=== PATIENT | male | born 1945 | race Hispanic/Latino ===

== ENCOUNTER → 2019-03-22 | Outpatient (CLI) | payer MEDICARE ==
--- NOTE | 2019-03-22 13:30 | NUR ---
MBSS COMPLETED. TRANSIENT PENETRATION WITH THIN LIQUIDS. RECOMMEND REGULAR TEXTURE, THIN LIQUIDS WITH CHIN TUCK, PILLS WHOLE WITH LIQUIDS. PATIENT INFORMATION: Pt IS A 73 YEAR OLD MALE REFERRED FOR AN MBSS SECONDARY TO S/P RADIATION TO LARYNX AND POSSIBLE SILENT ASPIRATION. Pt AAOX3 AND COOPERATIVE DURING THE MBSS. Pt REPORTS THAT HE DOES NOT FEEL THAT HE IS CURRENTLY HAVING DIFFICULTY SWALLOWING. Pt DIAGNOSED WITH LARYNGEAL CANCER AND PARTICIPATED IN RADIATION THERAPY FOR 1 MONTH WITH LAST SESSION 2 DAYS AGO. 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 Pt'S WITH HOARSENESS AND LOW VOCAL INTENSITY WHEN VOICING. PLEASE NOTE Pt DID NOT BRING DENTURES TO MBSS AND IT WAS COMPLETED WITH Pt EDENTULOUS. MBSS INTERPRETATION: Pt PRESENTS WITH MILD PHARYNGEAL DYSPHAGIA CAUSED BY DECREASED TONGUE BASE RETRACTION AND DELAYED PHARYNGEAL RESPONSE TIME WITH MINIMAL DECREASED IN LARYNGEAL EXCURSION, EVIDENCED BY POOLING IN THE VALLECULAE (WITHOUT RESIDUE), RESULTING IN SHALLOW TRANSIENT PENETRATION WITH THIN LIQUIDS VIA CUP SIP WITH NO COUGH RESPONSE, NO PENETRATION WITH THIN LIQUIDS VIA CUP SIP USING CHIN TUCK. NO ASPIRATION PRESENT AT THE TIME OF THE MBSS. PLEASE NOTE Pt ABLE TO COMPENSATE FOR MISSING DENTITION. TRIALS: 1. TSP PUREED: GOOD 2. TSP PUDDING: GOOD 3. TSP MIXED: GOOD 4. CUP SIP THIN LIQUIDS: SHALLOW TRANSIENT PENETRATION (SILENT) 5. CUP SIP THIN LIQUIDS WITH CHIN TUCK: GOOD RECOMMENDATIONS: 1. REGULAR, THIN LIQUIDS, PILLS WHOLE WITH LIQUIDS. 2. COMPENSATORY STRATEGIES: *SEATED AT 90 *NO STRAW *CHIN TUCK WITH LIQUIDS *SMALL BITES AND SIPS DEBIT AGENT EDUCATED Pt ON RISKS AND CONSEQUENCES OF ASPIRATION. SAFE SWALLOW PRECAUTIONS WERE REVIEWED WITH Pt. DEBIT AGENT PROVIDED RESULTS AND RECOMMENDATIONS VIA WRITTEN MODALITY ON Pt'S NEZ PERCE LANGUAGE OF ARMENIAN. ALL QUESTIONS ANSWERED AT THIS TIME. Pt DEMONSTRATED ABILITY TO COMPLETE CHIN TUCK INDEPENDENTLY DURING PRACTICE TRIALS WITH DEBIT AGENT. PT VERBALIZED UNDERSTANDING AND COMPLIANCE WITH RECOMMENDATIONS. PLEASE NOTE MBSS WAS NOT RECOMMENDED SECONDARY TO TECHNICAL DIFFICULTIES WHICH HAVE RESOLVED. G-CODES SWALLOWING: [id number] Addendum: 03/22/19 at 1342 by CELIA TRIVEDI, [facility] Amended: Links added.
== END | disposition home or self-care (01) ==
LOC: RAH 09:36
PROVIDERS: ATTEND Otolaryngology
DX: R13.13 Dysphagia, pharyngeal phase (principal); Z85.21 Personal history of malignant neoplasm of larynx
CPT/HCPCS: 74230; 92611; G8996; G8997; G8998